=== PATIENT | female | born 1945 | race Two or more races ===

== ENCOUNTER → 2016-09-29 | Outpatient (CLI) | payer MEDICARE, BC ==
--- NOTE | 2016-09-29 18:24 | HKNOTE ---
DATE OF SERVICE: 09/29/2016 The patient has severe degenerative osteoarthritis of the left knee. She comes in to further discus s knee replacement surgery. She would like to undergo the surgery, but she had numerous questions t o ask, virtually beginning from scratch such as what the implants are made of, how they are attached to the bone, how long the surgery will take, how long in the hospital, how long for recovery, how m uch pain, whether or not she will be able to drive her car, when she will be able to drive her car. The patient has a [employer] [facility] which is about [place] from where she [place]. 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 She was advised that she could probably get back to work after 1 week. At her request, she was given a prescription for Percocet for pain, and she will call to schedule her surgery when she is ready to proceed. She also asked me to call h er son, Mr. Mp Berumen, to discuss the situation. Dictated By: NADEGE CARRILLO/MARIE Conf#: [id number] DID#: [id number]
== END | disposition home or self-care (01) ==
LOC: HKI 14:30
DX: M17.12 Unilateral primary osteoarthritis, left knee (principal)
CPT/HCPCS: G0463

== ENCOUNTER → 2016-10-20 | Outpatient (CLI) | payer MEDICARE, BC ==
--- NOTE | 2016-10-20 19:02 | HKNOTE ---
DATE OF SERVICE: 10/20/2016 Patient comes ____degenerative osteoarthritis of the left knee. She comes in requesting repeat kashif isone injection and she also wants to discuss knee replacement surgery. A considerable amount of time was spent with her discussing hip and knee replacement surgery. She w as shown videos of successful patients' surgeries. We also discussed the fact that I had spoken to her son in [place] on the phone. Patient is still not ready to consider proceeding with knee replacement surgery. MANAGEMENT: Under sterile conditions, given injection of 2 mL of Kenalog and 6 mL of 2% lidocaine i nto the knee and she will be seen again as necessary for further evaluation and treatment. Dictated By: NADEGE CARRILLO/MARIE Conf#: [id number] DID#: [id number]
== END | disposition home or self-care (01) ==
LOC: HKI 13:46
DX: M17.12 Unilateral primary osteoarthritis, left knee (principal)
CPT/HCPCS: 20610; G0463; J3301